=== PATIENT | female | born 1960 | race Caucasian/White ===

== ENCOUNTER 2017-10-16 14:07 | Emergency (ER) | payer MEDICAID ==
[2017-10-16 14:28] VITALS: BP 142/90
[2017-10-16] MEDS ORDERED: LORazepam 1 MG Tab PO ONE ×2 (14:36→17:29)
--- NOTE | 2017-10-16 15:58 | EDM.PDOCBH ---
<OfficerAriel - Last Filed: 10/16/17 17:29> ED HPI GENERAL MEDICAL PROBLEM - General Chief Complaint: Behavioral/Psych Stated Complaint: PSYCH EVAL, VOICES Time Seen by Provider: 10/16/17 15:39 Source of Information: Reports: Patient, Family, RN Notes Reviewed History Limitations: Reports: No Limitations - History of Present Illness INITIAL COMMENTS - FREE TEXT/NARRATIVE: 57-year-old female presents to the emergency department today for psychiatric evaluation. Known history of depression follows with counseling in town however over the last couple days she's had issues with auditory hallucinations the voices are telling her to hurt other people not necessarily, side but physical violence. She denies any suicidal ideation, she's never had this type of hallucination before Bilateral Knee Pain Score (Numeric/FACES): 4 - Related Data Allergies Allergy/AdvReac Type Severity Reaction Status Date / Time codeine AdvReac Nausea Verified 10/16/17 14:44 venlafaxine [From Effexor] AdvReac Nausea and Verified 10/16/17 14:44 Vomiting Home Meds: Home Meds Citalopram [Citalopram Hbr] 40 mg PO DAILY 09/03/13 [History] Potassium Chloride [Klor-Con M20] 20 meq PO DAILY 09/03/13 [History] Triamterene/Hydrochlorothiazid [Triamterene-HCTZ 75-50 MG] 1 tab PO DAILY [History] Mirtazapine 30 mg PO BEDTIME 03/02/16 [History] Naltrexone HCl [Revia] 50 mg PO DAILY 03/02/16 [History] Rosuvastatin [Crestor] 10 mg PO DAILY 03/02/16 [History] Past Medical History HEENT History: Reports: Impaired Vision Cardiovascular History: Reports: High Cholesterol, Hypertension 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: Psychiatric History: Reports: Depression, Hallucinations Endocrine/Metabolic History: Reports: Obesity/BMI 30+ - Infectious Disease History Infectious Disease History: Reports: Hepatitis C - Past Surgical History Female Surgical History: Reports: Hysterectomy Social & Family History - Tobacco Use Smoking Status *Q: Current Every Day Smoker Years of Tobacco use: 30 Packs/Tins Daily: 0.5 Used Tobacco, but Quit: No Second Hand Smoke Exposure: Yes - Caffeine Use Caffeine Use: Reports: Coffee - Alcohol Use Days Per Week of Alcohol Use: 3 Number of Drinks Per Day: 4 Total Drinks Per Week: 12 - Recreational Drug Use Recreational Drug Use: Yes Drug Use in Last 12 Months: Yes Recreational Drug Type: Reports: Marijuana/Hashish Recreational Drug Use Frequency: Daily ED ROS GENERAL - Review of Systems Review Of Systems: See Below Constitutional: Reports: No Symptoms HEENT: Reports: No Symptoms Cardiovascular: Reports: No Symptoms GI/Abdominal: Reports: No Symptoms : Reports: No Symptoms Psychiatric: Reports: Anxiety, Hallucinations (Suggestive). Denies: Homicidal Ideation, Suicidal Ideation ED EXAM, BEHAVIORAL HEALTH - Physical Exam Exam: See Below Exam Limited By: No Limitations General Appearance: Alert, WD/WN, No Apparent Distress Respiratory/Chest: No Respiratory Distress, Lungs Clear, Normal Breath Sounds, No Accessory Muscle Use Cardiovascular: Regular Rate, Rhythm, No Murmur Psychiatric: Alert, Agitated, Auditory Hallucinations. No: Non-Communicative, Poor Eye Contact, Uncooperative, Flight of Ideas, Homicidal Thoughts, Rastafari Delusions, Suicidal Plan, Suicidal Thoughts, Tangential Thoughts, Visual Hallucinations, Grandiose Thoughts, Threatening Behavior COURSE, BEHAVIORAL HEALTH COMP - Course Vital Signs: Last Vital Signs Temp 96.8 F 10/16/17 14:42 Pulse 110 H 10/16/17 14:42 Resp 15 10/16/17 14:42 BP 142/90 H 10/16/17 14:42 Pulse Ox 91 L 10/16/17 14:42 Orders, Labs, Meds: Active Orders 24 hr Category Date Time Status DRUG SCREEN, URINE [URCHEM] Urgent Lab 10/16/17 16:52 Ordered UA W/MICROSCOPIC [URIN] Urgent Lab 10/16/17 16:52 Ordered Laboratory Tests 10/16/17 10/16/17 10/16/17 Range/Units 15:54 15:54 15:54 WBC 8.0 (4.5-11.0) K/uL RBC 5.42 (3.30-5.50) M/uL Hgb 17.1 H (12.0-15.0) g/dL Hct 49.6 H (36.0-48.0) % MCV 92 (80-98) fL MCH 32 H (27-31) pg MCHC 35 (32-36) % Plt Count 268 (150-400) K/uL Neut % (Auto) 55 (36-66) % Lymph % (Auto) 37 (24-44) % [place] % (Auto) 7 H (2-6) % Eos % (Auto) 0 L (2-4) % Baso % (Auto) 1 (0-1) % Sodium 140 (140-148) mmol/L Potassium 3.8 (3.6-5.2) mmol/L Chloride 101 (100-108) mmol/L Carbon Dioxide 23 (21-32) mmol/L Anion Gap 15.9 H (5.0-14.0) mmol/L BUN 35 H (7-18) mg/dL Creatinine 1.1 H (0.6-1.0) mg/dL Est Cr Clr Drug Dosing 55.53 mL/min Estimated GFR (MDRD) 51 L (>60) Glucose 80 (74-106) mg/dL Calcium 8.6 (8.5-10.1) mg/dL Total Bilirubin 0.5 D (0.2-1.0) mg/dL AST 45 H (15-37) U/L ALT 47 (12-78) U/L Alkaline Phosphatase 81 (46-116) U/L Total Protein 8.5 H (6.4-8.2) g/dL Albumin 4.2 (3.4-5.0) g/dL Globulin 4.3 H (2.3-3.5) g/dL Albumin/Globulin Ratio 1.0 L (1.2-2.2) TSH, Ultra Sensitive (0.358-3.740) uIU/mL Urine Color Urine Appearance Urine pH (4.5-8.0) Ur Specific [place] (1.008-1.030) Urine Protein (NEGATIVE) mg/dL Urine Glucose (UA) (NEGATIVE) mg/dL Urine Ketones (NEGATIVE) mg/dL Urine Occult Blood (NEGATIVE) Urine Nitrite (NEGATIVE) Urine Bilirubin (NEGATIVE) Urine Urobilinogen (NORMAL) mg/dL Ur Leukocyte Esterase (NEGATIVE) Urine RBC (0-5) Urine WBC (0-5) Ur Epithelial Cells Amorphous Sediment Urine Bacteria Urine Mucus Urine Other Urine Opiates Screen (NEGATIVE) Ur Oxycodone Screen (NEGATIVE) Urine Methadone Screen (NEGATIVE) Ur Propoxyphene Screen (NEGATIVE) Ur Barbiturates Screen (NEGATIVE) Ur Tricyclics Screen (NEGATIVE) Ur Phencyclidine Scrn (NEGATIVE) Ur Amphetamine Screen (NEGATIVE) U Methamphetamines Scrn (NEGATIVE) Urine MDMA Screen (NEGATIVE) U Benzodiazepines Scrn (NEGATIVE) U Cocaine Metab Screen (NEGATIVE) U Marijuana (THC) Screen (NEGATIVE) Ethyl Alcohol 176 mg/dL 10/16/17 10/16/17 10/16/17 Range/Units 15:54 16:52 16:52 WBC (4.5-11.0) K/uL RBC (3.30-5.50) M/uL Hgb (12.0-15.0) g/dL Hct (36.0-48.0) % MCV (80-98) fL MCH (27-31) pg MCHC (32-36) % Plt Count (150-400) K/uL Neut % (Auto) (36-66) % Lymph % (Auto) (24-44) % [place] % (Auto) (2-6) % Eos % (Auto) (2-4) % Baso % (Auto) (0-1) % Sodium (140-148) mmol/L Potassium (3.6-5.2) mmol/L Chloride (100-108) mmol/L Carbon Dioxide (21-32) mmol/L Anion Gap (5.0-14.0) mmol/L BUN (7-18) mg/dL Creatinine (0.6-1.0) mg/dL Est Cr Clr Drug Dosing mL/min Estimated GFR (MDRD) (>60) Glucose (74-106) mg/dL Calcium (8.5-10.1) mg/dL Total Bilirubin (0.2-1.0) mg/dL AST (15-37) U/L ALT (12-78) U/L Alkaline Phosphatase (46-116) U/L Total Protein (6.4-8.2) g/dL Albumin (3.4-5.0) g/dL Globulin (2.3-3.5) g/dL Albumin/Globulin Ratio (1.2-2.2) TSH, Ultra Sensitive 6.060 H (0.358-3.740) uIU/mL Urine Color Yellow Urine Appearance Cloudy Urine pH 6.0 (4.5-8.0) Ur Specific [place] 1.020 (1.008-1.030) Urine Protein 100 H (NEGATIVE) mg/dL Urine Glucose (UA) Normal (NEGATIVE) mg/dL Urine Ketones Negative (NEGATIVE) mg/dL Urine Occult Blood Large (NEGATIVE) Urine Nitrite Negative (NEGATIVE) Urine Bilirubin Negative (NEGATIVE) Urine Urobilinogen Normal (NORMAL) mg/dL Ur Leukocyte Esterase Negative (NEGATIVE) Urine RBC 5-10 H (0-5) Urine WBC 0-5 (0-5) Ur Epithelial Cells Moderate Amorphous Sediment Many Urine Bacteria Many Urine Mucus Moderate Urine Other Urine Opiates Screen Negative (NEGATIVE) Ur Oxycodone Screen Negative (NEGATIVE) Urine Methadone Screen Negative (NEGATIVE) Ur Propoxyphene Screen Negative (NEGATIVE) Ur Barbiturates Screen Negative (NEGATIVE) Ur Tricyclics Screen Negative (NEGATIVE) Ur Phencyclidine Scrn Negative (NEGATIVE) Ur Amphetamine Screen Negative (NEGATIVE) U Methamphetamines Scrn Negative (NEGATIVE) Urine MDMA Screen Negative (NEGATIVE) U Benzodiazepines Scrn Positive H (NEGATIVE) U Cocaine Metab Screen Negative (NEGATIVE) U Marijuana (THC) Screen Positive H (NEGATIVE) Ethyl Alcohol mg/dL Medications Discontinued Medications Generic Name Dose Route Start Last Admin Trade Name Gilmerq PRN Reason Stop Dose Admin Lorazepam 1 mg 10/16/17 14:36 10/16/17 14:40 Ativan PO 10/16/17 14:37 1 mg ONETIME ONE Administration Lorazepam 1 mg 10/16/17 17:29 10/16/17 17:53 Ativan PO 10/16/17 17:30 1 mg ONETIME ONE Administration Departure - Departure Disposition: Home, Self-Care 01 Clinical Impression: Hallucinations Acute alcohol intoxication Qualifiers: Complication of substance-induced condition: uncomplicated Qualified Code(s): F10.929 - Alcohol use, unspecified with intoxication, unspecified - Discharge Information Instructions: Alcohol Intoxication, [id number] Referrals: Arash Trevizo MD [Primary Care Provider] - Forms: ED Department Discharge Care Plan Goals: Consume no more alcohol and get a reassessment tomorrow by either your primary doctor or psychologist. <Wallace Chatman - Last Filed: 10/16/17 21:50> COURSE, BEHAVIORAL HEALTH COMP - Course Re-Assessment/Re-Exam: 57-year-old female was sent in for a psychiatric "admission", however she is refusing detox and a psychiatric referral and does not meet criteria for 72 hour hold. She is saying she is hearing voices suggesting hurting someone, but she would never act out on these voices and she later admitted that she's been hearing these voices for years. Her alcohol level was 0.17 and that's actually after not drinking for several hours. Her family has agreed to take her home tonight, watch her and bring her back tomorrow after she has sobered up for reevaluation if she continues to have symptoms. Departure - Departure Time of Disposition: 19:00 Condition: Fair
== END 2017-10-16 18:59 | disposition home or self-care (01) ==
LOC: JP.ED 14:07
DX: F10.129 Alcohol abuse with intoxication, unspecified (principal); R44.3 Hallucinations, unspecified; E78.00 Pure hypercholesterolemia, unspecified; I10 Essential (primary) hypertension; F17.210 Nicotine dependence, cigarettes, uncomplicated; F32.9 Major depressive disorder, single episode, unspecified; M25.561 Pain in right knee; M25.562 Pain in left knee; Y90.6 Blood alcohol level of 120-199 mg/100 ml; Z88.5 Allergy status to narcotic agent; Z88.8 Allergy status to other drugs, medicaments and biological substances; Z79.899 Other long term (current) drug therapy
CPT/HCPCS: 36415; 80053; 80305; 81001; 84443; 85025; 99284; A9270; G0480

== ENCOUNTER 2020-11-27 18:16 | Emergency (ER) | payer MEDICAID ==
[2020-11-27 19:22] VITALS: BP 151/101; PULSE 70
--- NOTE | 2020-11-27 19:49 | EDM.PDOC ---
ED HPI GENERAL MEDICAL PROBLEM - General Chief Complaint: Respiratory Problem Stated Complaint: FEVER,CHILLS,COUGHING Time Seen by Provider: 11/27/20 19:35 Source of Information: Reports: Patient, RN Notes Reviewed History Limitations: Reports: No Limitations - History of Present Illness INITIAL COMMENTS - FREE TEXT/NARRATIVE: 60-year-old female presents emergency department day complaint of cough, she has a known history of tobacco use has been producing white sputum also extensive history of bronchitis. Was recently tested for Covid 6 days prior with negative results this was a nasal swab in the emergency department 29. She has not had any fevers does have chest pain secondary to coughing Bilateral Chest Pain Score (Numeric/FACES): 3 - Related Data Allergies Allergy/AdvReac Type Severity Reaction Status Date / Time No Known Allergies Allergy Verified 11/27/20 19:26 Home Meds: Home Meds Triamterene/Hydrochlorothiazid [Triamterene-HCTZ 75-50 MG] 1 tab PO DAILY 09/03/13 [History] Cholestyramine/Sucrose [Cholestyramine] 1 packet PO DAILY 11/27/20 [History] traZODone HCl [Trazodone HCl] 0.5 tab PO BEDTIME 11/27/20 [History] Past Medical History HEENT History: Reports: Impaired Vision Cardiovascular History: Reports: High Cholesterol, Hypertension Respiratory History: Reports: Bronchitis, 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: Psychiatric History: Reports: Depression, Hallucinations Endocrine/Metabolic History: Reports: Obesity/BMI 30+ - Infectious Disease History Infectious Disease History: Reports: Hepatitis C - Past Surgical History Female Surgical History: Reports: Hysterectomy Social & Family History - Family History Family Medical History: Unobtainable - Tobacco Use Tobacco Use Status *Q: Current Every Day Tobacco User Years of Tobacco use: 20 Packs/Tins Daily: 0.5 - Caffeine Use Caffeine Use: Reports: Coffee, Tea - Recreational Drug Use Recreational Drug Use: No ED ROS GENERAL - Review of Systems Review Of Systems: See Below Constitutional: Denies: Fever, Chills HEENT: Reports: No Symptoms Respiratory: Reports: Cough, Sputum. Denies: Shortness of Breath, Wheezing Cardiovascular: Reports: Chest Pain GI/Abdominal: Reports: No Symptoms ED EXAM, GENERAL - Physical Exam Exam: See Below Exam Limited By: No Limitations General Appearance: Alert, WD/WN, No Apparent Distress Respiratory/Chest: No Respiratory Distress, Lungs Clear, Normal Breath Sounds, No Accessory Muscle Use, Chest Non-Tender Cardiovascular: Regular Rate, Rhythm, No Murmur GI/Abdominal: Soft, Non-Tender Course - Vital Signs Last Recorded V/S: Last Vital Signs Temp 97.4 F 11/27/20 19:25 Pulse 70 11/27/20 19:25 Resp 16 11/27/20 19:25 BP 151/101 H 11/27/20 19:25 Pulse Ox 98 11/27/20 19:25 Departure - Departure Time of Disposition: 19:48 Disposition: Home, Self-Care 01 Condition: Fair Clinical Impression: Bronchitis - Discharge Information Instructions: Acute Bronchitis, Adult, [id number] Referrals: Arash Trevizo MD [Primary Care Provider] - Additional Instructions: Take full course of antibiotics, use Robitussin-AC as needed help suppress cough, please followup with your primary care provider in 3-5 days if not better, please call return to the emergency department with worsening of symptoms. Sepsis Event Note (ED) - Evaluation Sepsis Screening Result: No Definite Risk - Focused Exam Vital Signs: Vital Signs Temp Pulse Resp BP Pulse Ox 11/27/20 19:25 97.4 F 70 16 151/101 H 98 11/27/20 19:21 97.4 F 70 16 151/101 H 98 - Assessment/Plan Plan: Assessment Acuity = acute Site and laterality = bronchitis Etiology = unknown Manifestations = cough sputum production Location of injury = Home Lab values = none Plan Because she has been ill for a week elected to treat empirically azithromycin 5- day course as well as Robitussin-AC talked her about Covid however she just had a negative test 5 days ago she declined at this time This note was dictated using [employer] voice recognition software please call with any questions on syntax or grammar.
== END 2020-11-27 19:59 | disposition home or self-care (01) ==
LOC: JP.ED 18:16
DX: J40 Bronchitis, not specified as acute or chronic (principal); I10 Essential (primary) hypertension; E66.9 Obesity, unspecified; Z68.35 Body mass index [BMI] 35.0-35.9, adult; Z72.0 Tobacco use
CPT/HCPCS: 99283

== ENCOUNTER 2023-03-12 17:40 | Emergency (ER) | payer MEDICAID ==
[2023-03-12 18:09] VITALS: BP 132/87; PULSE 75
[2023-03-12 18:52] LABS: CALCIUM 8.9 mg/dL (8.5-10.1); CREATININE 1.1 mg/dL (0.6-1.0); EST CRCL DRUG DOSING (CG) 52.23 mL/min; POTASSIUM,K 3.5 mmol/L (3.6-5.2)
[2023-03-12 18:59] LABS: ANION GAP 15.5 mmol/L (5.0-14.0)
== END 2023-03-12 19:19 | disposition home or self-care (01) ==
LOC: JP.ED 17:40
DX: K04.7 Periapical abscess without sinus (principal); E78.00 Pure hypercholesterolemia, unspecified; I10 Essential (primary) hypertension; E66.9 Obesity, unspecified; Z68.34 Body mass index [BMI] 34.0-34.9, adult; Z79.899 Other long term (current) drug therapy
CPT/HCPCS: 36415; 80048; 99283

== ENCOUNTER 2024-12-24 06:10 | Day surgery (SDC) | payer MEDICAID ==
[2024-12-24] MEDS ORDERED: Midazolam 1 MG/ML 2 ML SDV ONE (07:14)
[2024-12-24] MEDS ORDERED: fentaNYL 50 MCG/ML SDV ONE (07:14)
[2024-12-24] MEDS ORDERED: Propofol 200 MG/20 ML SDV ONE (07:15)
[2024-12-24] MEDS: Lactated Ringers 1,000 ML IV SCH (07:27)
[2024-12-24 08:58] VITALS: BP 128/83; PULSE 60
== END 2024-12-24 09:05 | disposition home or self-care (01) ==
LOC: JP.SDS 06:10
PROVIDERS: ATTEND Surgery
DX: Z12.11 Encounter for screening for malignant neoplasm of colon (principal); K57.30 Diverticulosis of large intestine without perforation or abscess without bleeding; K64.4 Residual hemorrhoidal skin tags; E66.9 Obesity, unspecified; I10 Essential (primary) hypertension; F17.200 Nicotine dependence, unspecified, uncomplicated
CPT/HCPCS: 45378; J2250; J2704; J3010; J7120; 00812-QZ